=== PATIENT | male | born 1965 | race Caucasian/White ===

== ENCOUNTER → 2018-10-13 | Outpatient (REF) ==
--- NOTE | 2018-10-14 02:43 | REP ---
Clinical: Pain and disability. Technique: AP, lateral, bilateral oblique views of the left knee. Findings: Subtle cortical irregularity at the femoral condyles with early marginal spurring as well as increased sclerosis to the tibial plateau is appreciated. No acute fracture dislocation. No effusion. Impression: Essentially age-appropriate examination. Electronically Signed by Tobias Shetty MD 10/14/2018 02:35 A
--- NOTE | 2018-10-14 03:01 | REP ---
Clinical: Right shoulder pain . Technique: Internal rotation, external rotation, and Y view. Findings: Subtle generalized age-related changes are appreciated. No overt arthritic findings noted. Subacromial space is normal. No periarticular calcifications or loose bodies. No acute fracture dislocation. Impression: Normal age-appropriate right shoulder radiographs. Electronically Signed by Tobias Shetty MD 10/14/2018 02:53 A
== END ==
LOC: M SMT 13:12
PROVIDERS: ATTEND Internal Medicine
DX: Z00.00 Encounter for general adult medical examination without abnormal findings (principal)

== ENCOUNTER 2021-11-28 23:26 | Inpatient (IN) | payer OTHER ==
[~2021-11-28] VITALS: Ht 177.8 cm; Wt 84.1 kg
[2021-11-28] MEDS: IPRATROPIUM 0.5MG/ALBUTEROL 2.5MG INH SOL UD 3ML (DUONEB) NEB PRN ×3 (23:50→23:55)
[2021-11-29] MEDS ORDERED: UNRESOLVED CLARIFICATION ENTRY XX SCH (00:01)
[2021-11-29 00:08] LABS: ABG BASE EXCESS -2.3 (-2.0-2.0); ABG HCO3 23.4 MEQ/L (22.0-26.0); ABG O2 SATURATION 99.4 % (95.0-99.0); ABG PARTIAL PRESSURE CO2 43.2 mmHg (35.0-45.0); ABG PARTIAL PRESSURE O2 245.9 mmHg (75.0-100.0); ABG STANDARD HCO3 22.6 MEQ/L (22.0-26.0); ABG TOTAL CO2 24.7 MEQ/L (22.0-29.0); ABG pH (ARTERIAL) 7.351 UNITS (7.350-7.450)
[2021-11-29 00:24] LABS: BASO # 0.1 10^3/uL (0.0-0.2); BASO % 0.7 % (0.0-1.0); EOS # 0.6 10^3/uL (0.0-0.5); EOS % 4.2 % (0.0-3.0); HEMATOCRIT 47.4 % (42.0-52.0); HEMOGLOBIN 15.6 g/dl (13.5-17.5); LYMPH # 3.7 10^3/uL (1.5-5.0); LYMPH % 24.7 % (24.0-44.0); MEAN CORPUSCULAR HEMOGLOBIN 30.8 pg (27.0-33.0); MEAN CORPUSCULAR HGB CONC 32.9 g/dl (32.0-36.5); MEAN CORPUSCULAR VOLUME 93.5 fl (80.0-96.0); MONO # 1.3 10^3/uL (0.0-0.8); NEUTROPHILS % 60.7 % (36.0-66.0); PLATELET COUNT, AUTOMATED 238 10^3/uL (150-450); RED BLOOD COUNT 5.07 10^6/uL (4.30-6.10); WHITE BLOOD COUNT 14.8 10^3/uL (4.0-10.0)
[2021-11-29 00:43] LABS: MB/CK RELATIVE INDEX 1.96 (< OR =4)
[2021-11-29 00:45] LABS: ALBUMIN 4.1 GM/DL (3.2-5.2); ALT/SGPT 26 U/L (12-78); BILIRUBIN,DIRECT 0.1 MG/DL (0.0-0.2); BILIRUBIN,TOTAL 0.4 MG/DL (0.2-1.0); BLOOD UREA NITROGEN 8 MG/DL (7-18); CALCIUM LEVEL 8.6 MG/DL (8.5-10.1); CARBON DIOXIDE LEVEL 27 MEQ/L (21-32); CHLORIDE LEVEL 105 MEQ/L (98-107); CREATININE FOR GFR 0.72 MG/DL (0.70-1.30); GLOMERULAR FILTRATION RATE > 60.0 (>56); GLUCOSE, FASTING 108 MG/DL (70-100); NT-PRO BNP 66 PG/ML (<125); POTASSIUM SERUM 4.2 MEQ/L (3.5-5.1); SODIUM LEVEL 138 MEQ/L (136-145); TOTAL PROTEIN 7.2 GM/DL (6.4-8.2)
[2021-11-29 01:26] LABS: CK-MB VALUE MASS 4.8 NG/ML (<3.6); MB/CK RELATIVE INDEX 1.95 (< OR =4)
[2021-11-29] MEDS: methylPREDNISolone 40MG 1ML VIAL IV SCH ×3 (03:39→20:24)
[2021-11-29] MEDS ORDERED: MUCI600T31 PO (04:02)
[2021-11-29] MEDS ORDERED: IPRA0.00 INH (04:02)
[2021-11-29] MEDS ORDERED: SYMB16INH INH (04:02)
[2021-11-29] MEDS ORDERED: DICL1GEL3 TOP (04:02)
[2021-11-29] MEDS ORDERED: ALBU8.5H INH (04:02)
[2021-11-29] MEDS ORDERED: ACET650T61 PO (04:02)
[2021-11-29] MEDS ORDERED: BENZ200C70 PO (04:02)
[2021-11-29] MEDS ORDERED: HOME MED LIST COMPLETE! XX SCH (04:05)
[2021-11-29] MEDS: ACETAMINOPHEN TAB 650MG DOSE (2X325MG) PO PRN ×4 (04:23→22:28)
[2021-11-29 07:50] LABS: BASO % 0.2 % (0.0-1.0); EOS % 0.1 % (0.0-3.0); HEMATOCRIT 44.9 % (42.0-52.0); HEMOGLOBIN 14.7 g/dl (13.5-17.5); LYMPH # 0.8 10^3/uL (1.5-5.0); LYMPH % 8.9 % (24.0-44.0); MEAN CORPUSCULAR HEMOGLOBIN 30.9 pg (27.0-33.0); MEAN CORPUSCULAR HGB CONC 32.7 g/dl (32.0-36.5); MEAN CORPUSCULAR VOLUME 94.3 fl (80.0-96.0); MONO # 0.1 10^3/uL (0.0-0.8); MONO % 1.2 % (2.0-8.0); NEUTROPHILS # 8.3 10^3/uL (1.5-8.5); NEUTROPHILS % 89.2 % (36.0-66.0); PLATELET COUNT, AUTOMATED 222 10^3/uL (150-450); RED BLOOD COUNT 4.76 10^6/uL (4.30-6.10); WHITE BLOOD COUNT 9.3 10^3/uL (4.0-10.0)
[2021-11-29] MEDS ORDERED: IPRATROPIUM 0.5MG/ALBUTEROL 2.5MG INH SOL UD 3ML (DUONEB) NEB SCH (08:00)
[2021-11-29] MEDS: SYMBICORT 160/4.5MCG INHALER 6GM INH SCH ×2 (08:05→19:27)
[2021-11-29 08:22] LABS: BLOOD UREA NITROGEN 10 MG/DL (7-18); CALCIUM LEVEL 8.9 MG/DL (8.5-10.1); CARBON DIOXIDE LEVEL 29 MEQ/L (21-32); CHLORIDE LEVEL 104 MEQ/L (98-107); CREATININE FOR GFR 0.76 MG/DL (0.70-1.30); GLOMERULAR FILTRATION RATE > 60.0 (>56); GLUCOSE, FASTING 164 MG/DL (70-100); POTASSIUM SERUM 4.8 MEQ/L (3.5-5.1); SODIUM LEVEL 136 MEQ/L (136-145)
[2021-11-29] MEDS: ENOXAPARIN 40MG/0.4ML SYRINGE (J1650 PER 10MG) SC SCH (08:24)
[2021-11-29] MEDS: BENZONATATE 100MG CAPSULE PO PRN ×2 (11:09→20:23)
[2021-11-29] MEDS: guaiFENesin ER 600 MG TAB PO PRN ×2 (11:09→20:23)
[2021-11-29] MEDS: IPRATROPIUM 0.5MG/ALBUTEROL 2.5MG INH SOL UD 3ML (DUONEB) NEB SCH ×3 (12:00→19:29)
[2021-11-29 12:36] VITALS: BP 113/69
[2021-11-29 13:15] VITALS: BP 133/95
[2021-11-29 20:00] VITALS: BP 137/82
[2021-11-29 21:00] VITALS: O2SAT 0
[2021-11-29 21:12] VITALS: BP 137/82
[2021-11-29] MEDS ORDERED: DICLOFENAC EPOLAMINE 1.3 % PATCH TOP PRN (22:20)
[2021-11-30] MEDS: IPRATROPIUM 0.5MG/ALBUTEROL 2.5MG INH SOL UD 3ML (DUONEB) NEB SCH ×3 (00:19→08:11)
[2021-11-30] MEDS: methylPREDNISolone 40MG 1ML VIAL IV SCH (03:04)
[2021-11-30 05:41] VITALS: BP 130/79
[2021-11-30] MEDS: ACETAMINOPHEN TAB 650MG DOSE (2X325MG) PO PRN (07:23)
[2021-11-30] MEDS: SYMBICORT 160/4.5MCG INHALER 6GM INH SCH (08:11)
[2021-11-30] MEDS ORDERED: ALBU8.5H INH ×2 (08:14→08:46)
[2021-11-30] MEDS ORDERED: PRED10TA2 PO (08:14)
[2021-11-30] MEDS ORDERED: AZIT500T5 PO (08:15)
[2021-11-30] MEDS ORDERED: SYMB16INH INH (08:46)
[2021-11-30] MEDS: ENOXAPARIN 40MG/0.4ML SYRINGE (J1650 PER 10MG) SC SCH (08:55)
== END 2021-11-30 09:58 | disposition home or self-care (01) | DRG 140 ==
LOC: EDBD 23:26 → M ED 23:26 → M ED INP 11-29 03:19 → M MS5PR 11-29 03:19 → ENRESERV 11-29 12:45 → M MS5PR 11-29 13:17
PROVIDERS: ADMIT Internal Medicine; ATTEND Internal Medicine Nephrology
DX: J44.1 Chronic obstructive pulmonary disease with (acute) exacerbation (principal); J96.11 Chronic respiratory failure with hypoxia; M19.90 Unspecified osteoarthritis, unspecified site; Z79.899 Other long term (current) drug therapy